=== PATIENT | female | born 1995 | race Caucasian/White ===

== ENCOUNTER 2017-07-18 03:55 | Emergency (ER) | payer SELFPAY ==
[~2017-07-18] VITALS: Ht 154.9 cm; Wt 54.4 kg
[2017-07-18 03:55] VITALS: BP 110/63
--- NOTE | 2017-07-18 03:55 | NUR ---
PT JANEY BOLDENS. TAKEN TO BED 4
[2017-07-18] MEDS ORDERED: NACL 0.9% 1,000 ML IV ONE (04:00)
--- NOTE | 2017-07-18 04:08 | NUR ---
PT 22F BIB AMBULANCE AFTER MOM CALLED 911 D/T PT BEING DRINKING ALCOHOL. ON ARRIVAL PT AMBULATED TO BATHROOM WITH 2 ASSISTS D/T UNSTEADY GATE. PT THEN REDIRECTED TO [facility] AND PLACED ON FULL MONITOR. NO SIG PMHX, SEEN HERE EARLIER THIS WEEK FOR SIMILAR COMPLAINT. PT DENIES N/V/D; SKIN IS INTACT, PINK/WARM/DRY; AAOX4 BUT SLURRING SPEECH, USING EXCESSIVE TALKING WITH ETOH SMELL ON BREATH, PERRL, LUNGS CLEAR BL, BREATHING UNLABORED; HR EVEN AND REGULAR, BL PERIPHERAL PULSES PRESENT; BS ACTIVE X4, NO TENDERNESS TO PALPATION, NO HEPATOSPLENOMEGALLY PALPATED, RESONANT TO PERCUSSION; PT DENIES ANY FEVER, CP, SOB, OR COUGH AT THIS TIME; PT STATES 0/10 PAIN AT THIS TIME; VSS; PATIENT POSITIONED FOR COMFORT; HOB ELEVATED; BEDRAILS UP X2; BED DOWN.
--- NOTE | 2017-07-18 04:08 | NUR ---
Note undone in EDM - 07/18/17 at 0500 by OLIVER PT 22F BIB AMBULANCE AFTER MOM CALLED 911 D/T PT BEING SEVERELY INTOXICATED WITH ALCOHOL. PT AMBULATED TO BATHROOM WITH 2 ASSISTS D/T UNSTEADY GATE. PT THEN REDIRECTED TO [facility] ON PLACED ON FULL MONITOR. NO SIG PMHX, SEEN HERE EARLIER THIS WEEK FOR SIMILAR COMPLAINT. PT DENIES N/V/D; SKIN IS INTACT, PINK/WARM/DRY; AAOX4 BUT HEAVILY INTOXICATED WITH ETOH SMELL ON BREATH, PERRL, LUNGS CLEAR BL, BREATHING UNLABORED; HR EVEN AND REGULAR, BL PERIPHERAL PULSES PRESENT; BS ACTIVE X4, NO TENDERNESS TO PALPATION, NO HEPATOSPLENOMEGALLY PALPATED, RESONANT TO PERCUSSION; PT DENIES ANY FEVER, CP, SOB, OR COUGH AT THIS TIME; PT STATES 0/10 PAIN AT THIS TIME; VSS; PATIENT POSITIONED FOR COMFORT; HOB ELEVATED; BEDRAILS UP X2; BED DOWN.
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
--- NOTE | 2017-07-18 04:15 | NUR ---
PT REPEATEDLY ATTEMPTING TO GET OUT OF STRETCHER X3, REDIRECTED TO LAY DOWN. EDMD MADE AWARE.
--- NOTE | 2017-07-18 04:24 | NUR ---
PT REPEATEDLY ATTEMPTING TO GET OUT OF STRETCHER, REDIRECTED TO LAY DOWN. EDMD MADE AWARE.
[2017-07-18] MEDS ORDERED: ONDANSETRON 4 MG/2 ML VIAL IVP ONE (04:25)
[2017-07-18] MEDS ORDERED: ONDANSETRON 4 MG/2 ML VIAL ONE (04:27)
--- NOTE | 2017-07-18 05:10 | NUR ---
PT ASLEEP ON GURNEY IN NO ACUTE DISTRESS, REASSURED, WARM BLANKET GIVEN.
[2017-07-18 05:51] VITALS: BP 109/60
--- NOTE | 2017-07-18 05:51 | NUR ---
Patient discharged with v/s stable. Written and verbal after care instructions given and explained. Patient verbalized understanding. Ambulatory with steady gait, ROAD TEST PERFORMED AND PASSED. All questions addressed prior to discharge. Advised to follow up with PMD.
== END 2017-07-18 05:51 | disposition home or self-care (01) ==
LOC: MED 03:55
DX: F10.129 Alcohol abuse with intoxication, unspecified (principal); F91.9 Conduct disorder, unspecified
CPT/HCPCS: 96361; 96374; 99284; J2405

== ENCOUNTER 2019-04-10 20:10 | Inpatient (IN) | payer OTHER ==
[~2019-04-10] VITALS: Ht 154.9 cm; Wt 54.4 kg
[2019-04-10 20:25] VITALS: BP 134/90
--- NOTE | 2019-04-10 20:28 | NUR ---
TO LOBBY A/W BED AMBULATORY
--- NOTE | 2019-04-10 22:34 | NUR ---
PATIENT AMB TO [facility].
[2019-04-10] MEDS ORDERED: NACL 0.9% 1,000 ML IV ONE (22:45)
[2019-04-10] MEDS ORDERED: KETOROLAC 30 MG/ML VIAL IVP ONE (22:45)
[2019-04-10] MEDS ORDERED: ONDANSETRON 4 MG/2 ML VIAL IVP ONE (22:45)
--- NOTE | 2019-04-10 22:45 | NUR ---
PATIENT AMB TO BED 2.
--- NOTE | 2019-04-10 22:55 | NUR ---
FIRST CONTACT WITH PT. LAYING IN POSITION IN BED WITH FACIAL GRIMACING. REPORTS 10/10 LOWER ABD PAIN WITH N/V. CLEAR YELLOW VOMIT NOTED TO EMESIS BAG. MOM IS SITTING NEARBY. PT PLACED IN GOWN AND PLACED ON MONITOR. WILL CONTINUE TO MONITOR.
--- NOTE | 2019-04-10 23:00 | NUR ---
LABS COLLECTED BY
--- NOTE | 2019-04-10 23:11 | NUR ---
MEDICATED WITH 4 MG IVP ZOFRAN FOR N/V AND 30 MG IVP TORADOL FOR 10/10 LOWER ABD PAIN. WILL REASSESS.
[2019-04-10 23:15] LABS: APPEARANCE,URINE SL CLOUDY (CLEAR); BILIRUBIN,URINE NEGATIVE (NEGATIVE); BLOOD, URINE NEGATIVE (NEGATIVE); COLOR,URINE YELLOW (YELLOW); LEUKOCYTE ESTERASE ,URINE NEGATIVE (NEGATIVE); NITRITE, URINE NEGATIVE (NEGATIVE); PH,URINE 5.5 (5.0-9.0); UGLUCOSE NEGATIVE (NEGATIVE)
[2019-04-10 23:17] LABS: BASOPHILS % (AUTO) 0.2 % (0.0-2.0); EOSINOPHILS % (AUTO) 0.1 % (0.0-4.0); HEMATOCRIT 39.6 % (36-48); HEMOGLOBIN 13.4 g/dL (12.0-16.0); LYMPHOCYTES # (AUTO) 0.7 K/uL (2.5-16.5); MEAN CORPUSCULAR HEMOGLOBIN 33 pg (27-31); MEAN CORPUSCULAR HGB CONC 34 g/dL (33-37); MEAN CORPUSCULAR VOLUME 97.7 fL (80-94); MONOCYTES # (AUTO) 0.5 K/uL (0.8-1.0); MONOCYTES % (AUTO) 3.3 % (1.7-9.3); NEUTROPHILS % (AUTO) 91.9 % (42.2-75.2); PLATELET COUNT (AUTO) 326 K/uL (140-450); RED BLOOD CELL COUNT(AUTO) 4.05 MIL/uL (4.20-5.40); RED CELL DISTRIBUTION WIDTH 12.6 % (11.6-13.7)
--- NOTE | 2019-04-10 23:17 | NUR ---
PT TAKEN TO CT VIA [facility].
--- NOTE | 2019-04-10 23:30 | NUR ---
PT REPORTS PAIN RELIEF; 3/10. PT STATES IS TOLERABLE AT THIS TIME.
[2019-04-10 23:38] LABS: LYMPHOCYTES % (AUTO) 4.5 % (20.5-51.1); WHITE BLOOD COUNT (AUTO) 15.2 K/uL (4.8-10.8)
[2019-04-10 23:40] LABS: ALBUMIN 4.2 g/dL (3.4-5.0); ANION GAP 15.7 (8-16); CARBON DIOXIDE 24.5 mmol/L (21-32); CREATININE 0.9 mg/dL (0.6-1.3); POTASSIUM 3.2 mmol/L (3.5-5.1); TOTAL BILIRUBIN 0.9 mg/dL (0.0-1.0)
[2019-04-11] MEDS ORDERED: ceFAZolin 1,000 MG VIAL ONE (00:16)
[2019-04-11] MEDS ORDERED: ONDANSETRON 4 MG/2 ML VIAL IM/IVP PRN (00:45)
[2019-04-11] MEDS ORDERED: NACL 0.9% 1,000 ML IV SCH (00:45)
[2019-04-11] MEDS ORDERED: DOCUSATE SODIUM 100 MG GELCAP PO PRN (00:45)
[2019-04-11] MEDS ORDERED: ACETAMINOPHEN 325 MG TAB PO PRN (00:45)
[2019-04-11] MEDS ORDERED: POTASSIUM CHLORIDE 40 MEQ, LIDOCAINE MPF 1% 25 MG in NACL 0.9% 250 ML IV ONE (01:15)
--- NOTE | 2019-04-11 01:30 | NUR ---
PT RESTING QUIETLY WITH EYES CLOSED. BREATHING EVEN, UNLABORED. AROUSABLE TO VERBAL STIMULI. VSS. NO COMPLAINTS AT THIS TIME.
[2019-04-11 02:00] VITALS: BP 133/84
--- NOTE | 2019-04-11 02:00 | NUR ---
RECEIVED PT FROM ER VIA [facility] PT FAROESE SPEAKER AAOX4 AMBULATORY IV ON LEFT AC PATENT, PT COMPLAINT OF ABD PAIN LT RT LOWER ABD PAIN MEDIC WILL BE GIVEN ORDER , MRSA SWAB NARES PROTOCOL TKREN AND SENT TO LAB .PT IS ORIENTED TO THE FLOOR CALL L [facility]YL[facility] WITHIN REACH
--- NOTE | 2019-04-11 02:10 | NUR ---
Patient will be admitted to care of Dr. Stringer. Admited to MS . Will go to room 120B. Belongings list completed. Report to DANIEL Porter.
[2019-04-11] MEDS ORDERED: [UNRECOGNIZED DRUG - CODE] PO (02:19)
[2019-04-11] MEDS: MORPHINE SULFATE 2 MG/ML SYR IVP PRN ×3 (02:26→17:13)
--- NOTE | 2019-04-11 04:00 | NUR ---
AFTER PAIN MEDIC GIVEN PT SLEEPING WELL NOT PAIN NOTED , KIV ON LEFT AC INFUSING WELL PT IS NPO .MOM AT BED SIDE
[2019-04-11 04:36] LABS: PROTHROMBIN TIME 9.5 secs (10.8-13.4)
[2019-04-11 06:26] LABS: BENZODIAZEPINE, URINE NEG. ng/mL (NEG <=200); CANNABINOID, URINE POS. ng/mL (NEG <=50); COCAINE, URINE POS. ng/mL (NEG <=300); OPIATE, URINE NEG. ng/mL (NEG <=2000); PHENCYCLIDINE SCREEN,URINE NEG. ng/mL (NEG <=25)
--- NOTE | 2019-04-11 06:30 | NUR ---
PT SLEEPING WELLN DENIES ANY PAIN IV ON LEFT AC INFUSING WELL
[2019-04-11 06:34] LABS: BARBITURATE, URINE NEG. ng/ml (NEG <=200)
[2019-04-11 06:34] LABS: BASOPHILS % (AUTO) 0.3 % (0.0-2.0); HEMATOCRIT 34.4 % (36-48); HEMOGLOBIN 11.7 g/dL (12.0-16.0); LYMPHOCYTES % (AUTO) 8.1 % (20.5-51.1); MEAN CORPUSCULAR HEMOGLOBIN 33 pg (27-31); MEAN CORPUSCULAR HGB CONC 34 g/dL (33-37); MEAN CORPUSCULAR VOLUME 98.5 fL (80-94); MONOCYTES # (AUTO) 0.6 K/uL (0.8-1.0); MONOCYTES % (AUTO) 5.1 % (1.7-9.3); NEUTROPHILS # (AUTO) 10.6 K/uL (1.8-7.7); NEUTROPHILS % (AUTO) 86.5 % (42.2-75.2); PLATELET COUNT (AUTO) 259 K/uL (140-450); RED BLOOD CELL COUNT(AUTO) 3.49 MIL/uL (4.20-5.40); RED CELL DISTRIBUTION WIDTH 12.6 % (11.6-13.7); WHITE BLOOD COUNT (AUTO) 12.2 K/uL (4.8-10.8)
[2019-04-11 06:35] LABS: FREE T4 (FREE THYROXINE) 1.26 ng/dL (0.76-1.46); MAGNESIUM 1.7 mg/dL (1.8-2.4); THYROID STIMULATING HORMONE 0.87 uIU/mL (0.34-3.74)
[2019-04-11] MEDS ORDERED: DEXT 5% /NACL 0.9% 1,000 ML IV SCH (06:35)
[2019-04-11] MEDS: PIPERACILLIN/TAZOBACTAM 3.375 GM in DEXTROSE 5% 50 ML IV SCH ×3 (07:00→18:12)
--- NOTE | 2019-04-11 07:00 | NUR ---
PT IS ENDORSED TO CHERIE RN FOR CONTINUE OF CARE
[2019-04-11 07:01] LABS: CHOL/HDL RATIO 1.5 (1-4.5)
--- NOTE | 2019-04-11 07:05 | NUR ---
RECEIVED BEDSIDE REPORT FROM NIGHTSHIFT NURSE. PT RESTING IN BED. ABLE TO MAKE NEEDS KNOWN. RESPIRATIONS EVEN AND UNLABORED WITH NO SOB OR RESPIRATORY DISTRESS. SKIN WARM AND DRY TO TOUCH. IV SITE IN LAC 22G IS CLEAN, DRY, AND INTACT. SAFETY MEASURES IN PLACE. WILL CONTINUE TO MONITOR.
[2019-04-11 07:09] LABS: ANION GAP 15.4 (8-16); CARBON DIOXIDE 22.2 mmol/L (21-32); CREATININE 0.7 mg/dL (0.6-1.3); POTASSIUM 3.6 mmol/L (3.5-5.1)
[2019-04-11] MEDS ORDERED: PIPERACILLIN/TAZOBACTAM 3.375 GM VIAL IV ONE (07:32)
[2019-04-11 08:00] VITALS: BP 128/87
--- NOTE | 2019-04-11 08:07 | NUR ---
PT CALLED AND COMPLAINED OF SEVERE PAIN. PRN PAIN MEDICATION ADMINISTERED PRESCRIBED PER MD ORDER. PT TOLERATED WELL. MEDICATION EDUCATION PERFORMED. PT VERBALIZED UNDERSTANDING. SAFETY MEASURES IN PLACE. WILL CONTINUE TO MONITOR.
[2019-04-11] MEDS ORDERED: NORGESTIMATE ETHINYL ESTRADIOL PO SCH (09:00)
--- NOTE | 2019-04-11 09:15 | NUR ---
ENDORSED TO OR NURSE. PATIENT WENT TO GET LAP APPY. SAFETY MEASURES IN PLACE. WILL CONTINUE TO MONITOR
[2019-04-11] MEDS ORDERED: fentaNYL 0.05 MG/ML VIAL ONE (09:20)
[2019-04-11] MEDS ORDERED: SEVOFLURANE 250 ML BTL INH ONE (09:20)
[2019-04-11] MEDS ORDERED: GLYCOPYRROLATE 0.2 MG/ML VIAL ONE (09:20)
[2019-04-11] MEDS ORDERED: ROCURONIUM 50 MG/5 ML VIAL IV ONE (09:20)
[2019-04-11] MEDS ORDERED: NEOSTIGMINE 1:1000 10 MG/10 ML VIAL ONE (09:20)
[2019-04-11] MEDS ORDERED: METOCLOPRAMIDE 10 MG/2 ML INJ VIAL ONE (09:20)
[2019-04-11] MEDS ORDERED: ONDANSETRON 4 MG/2 ML VIAL ONE (09:20)
[2019-04-11] MEDS ORDERED: SUCCINYLCHOLINE CHLORIDE 200 MG/10 ML VIAL IVP ONE (09:20)
[2019-04-11] MEDS ORDERED: PROPOFOL 200 MG/20 ML VIAL IV ONE (09:20)
[2019-04-11] MEDS ORDERED: MAG SULF 2000 MG/WATER PREMIX 50 ML IV SCH (09:30)
[2019-04-11] MEDS ORDERED: MORPHINE SULFATE 2 MG/ML SYR IVP SCH (09:30)
[2019-04-11] MEDS ORDERED: SODIUM PHOS / POTASSIUM PHOS 1 PKT PDR PO SCH (09:30)
[2019-04-11] MEDS: BUPIVACAINE-MPF 0.25% 30 ML VIAL INJ ONE ×2 (09:53→11:06)
[2019-04-11] MEDS ORDERED: DEXT 5% / NACL 0.45% 1,000 ML IV SCH (10:25)
[2019-04-11] MEDS ORDERED: HYDROcodone/APAP 5/325 MG 1 TAB TAB PO PRN (10:25)
[2019-04-11] MEDS ORDERED: HYDROmorphone PFS 2 MG/ML SYR ONE (10:29)
[2019-04-11] MEDS ORDERED: HYDROmorphone 1 MG/ML AMP IVP PRN (10:30)
[2019-04-11] MEDS ORDERED: LACTATED RINGERS 1,000 ML IV SCH (10:30)
[2019-04-11] MEDS ORDERED: ONDANSETRON 4 MG/2 ML VIAL IVP PRN (10:30)
--- NOTE | 2019-04-11 10:33 | NUR ---
ADMINISTERED SCHED MED PRESCRIBED PER MD ORDER. PT TOLERATED WELL. MEDICATION EDUCATION PERFORMED. PT VERBALIZED UNDERSTANDING. SAFETY MEASURES IN PLACE. WILL CONTINUE TO MONITOR.
--- NOTE | 2019-04-11 11:15 | NUR ---
PT RETURNED FROM SURGERY. RECEIVED REPORT FROM OR NURSE. SAFETY MEASURES IN PLACE. WILL CONTINUE TO MONITOR.
[2019-04-11] MEDS ORDERED: MAG SULF 2000 MG/WATER PREMIX 50 ML IV ONE (12:49)
--- NOTE | 2019-04-11 12:51 | NUR ---
ADMINISTERED SCHED MED PRESCRIBED PER MD ORDER. PT TOLERATED WELL. MEDICATION EDUCATION PERFORMED. PT VERBALIZED UNDERSTANDING. SAFETY MEASURES IN PLACE. WILL CONTINUE TO MONITOR.
[2019-04-11] MEDS: NACL 0.9% 1,000 ML IV SCH (13:13)
--- NOTE | 2019-04-11 13:13 | NUR ---
ADMINISTERED SCHED MED PRESCRIBED PER MD ORDER. PT TOLERATED WELL. MEDICATION EDUCATION PERFORMED. PT VERBALIZED UNDERSTANDING. SAFETY MEASURES IN PLACE. WILL CONTINUE TO MONITOR.
--- NOTE | 2019-04-11 15:27 | NUR ---
HOURLY ROUNDING. FAMILY AT BEDSIDE. PT RESTING IN BED. ABLE TO MAKE NEEDS KNOWN. RESPIRATIONS EVEN AND UNLABORED WITH NO SOB OR RESPIRATORY DISTRESS. SKIN WARM AND DRY TO TOUCH. SAFETY MEASURES IN PLACE. WILL CONTINUE TO MONITOR
[2019-04-11 16:00] VITALS: BP 131/65
--- NOTE | 2019-04-11 16:12 | NUR ---
PATIENT HAS BEEN SCREENED AND CATEGORIZED LOW NUTRITION RISK. PATIENT WILL BE SEEN WITHIN 7 DAYS OF ADMISSION. 04/17/[address]
--- NOTE | 2019-04-11 19:00 | NUR ---
RECEIVED BEDSIDE REPORT FROM DAY SHIFT NURSE. PATIENT IS AWAKE, ALERT, AND COOPERATIVE. RESPIRATION EVEN UNLABORED ON ROOM AIR. NO DISTRESS NOTED. SKIN IS WARM AND DRY. IV PATENT AND AND INTACT. FAMILY AT BEDSIDE. PLAN OF CARE WAS DISCUSSED. ALL SAFETY MEASURES IN PLACE. BED IS AT LOW POSITION. CALL LIGHT WITHIN REACH AND VERBALIZES ITS USE. WILL CONTINUE TO MONITOR.
--- NOTE | 2019-04-11 19:15 | NUR ---
ENDORSED AT BEDSIDE WITH NIGHTSHIFT NURSE. PT RESTING IN BED. ABLE TO MAKE NEEDS KNOWN. RESPIRATIONS EVEN AND UNLABORED WITH NO SOB OR RESPIRATORY DISTRESS. SKIN WARM AND DRY TO TOUCH. SAFETY MEASURES IN PLACE. PT IS STABLE
--- NOTE | 2019-04-11 20:07 | NUR ---
INITIAL ASSESSMENT DONE. VITALS WERE TAKEN. PATIENT IS S/P LAP APPY 3 INCISION NOTED WITH DERMA GLUE. NO DRAINAGE OR S/SX OF INFECTION. WILL CONTINUE TO MONITOR.
--- NOTE | 2019-04-11 21:33 | NUR ---
CHECKED PATIENT. PATIENT IS AWAKE WATCHING TV RESPIRATION EVEN UNLABORED ON ROOM AIR. NO DISTRESS NOTED. FAMILY AT BEDSIDE WILL CONTINUE TO MONITOR.
--- NOTE | 2019-04-11 21:46 | NUR ---
ENDORSED PATIENT TO [place] CHARGE NURSE. FOR CONTINUITY OF CARE. PATIENT IS IN STABLE CONDITION.
--- NOTE | 2019-04-11 21:47 | NUR ---
RECEIVED PT FROM MAHAD RN PT IS AAOX4 AMBULATORY S/P LAP APPENDECTOMY, ABD WITH 3 SMALL INCISION WITH GLUE ,IV ON LEFT AC INFUSING WELL , NOT DISTRESS NOTED , RELATIVE AR BED SIDE INITIAL ASSESSMENT DONE
[2019-04-12] VITALS: BP 128/68
[2019-04-12] MEDS: PIPERACILLIN/TAZOBACTAM 3.375 GM in DEXTROSE 5% 50 ML IV SCH ×2 (00:15→05:36)
--- NOTE | 2019-04-12 00:19 | NUR ---
PT REMAIN STABLE DENIES ANY PAIN AFTER PAIN MEDI GIVEN IV ON LEFT AC INFUSING WELL
--- NOTE | 2019-04-12 04:00 | NUR ---
PT HAS BEEN MONITORING CLOSE NOT DISTRESS NOTED IV ON LEFT AC INFUSIG WELL
[2019-04-12] MEDS: NACL 0.9% 1,000 ML IV SCH (04:50)
[2019-04-12 06:58] LABS: BASOPHILS % (AUTO) 0.1 % (0.0-2.0); EOSINOPHILS % (AUTO) 0.7 % (0.0-4.0); HEMATOCRIT 32.2 % (36-48); HEMOGLOBIN 10.9 g/dL (12.0-16.0); LYMPHOCYTES # (AUTO) 1.8 K/uL (2.5-16.5); LYMPHOCYTES % (AUTO) 27.2 % (20.5-51.1); MEAN CORPUSCULAR HEMOGLOBIN 34 pg (27-31); MEAN CORPUSCULAR HGB CONC 34 g/dL (33-37); MEAN CORPUSCULAR VOLUME 99.2 fL (80-94); MONOCYTES # (AUTO) 0.4 K/uL (0.8-1.0); MONOCYTES % (AUTO) 6.8 % (1.7-9.3); NEUTROPHILS # (AUTO) 4.3 K/uL (1.8-7.7); NEUTROPHILS % (AUTO) 65.2 % (42.2-75.2); PLATELET COUNT (AUTO) 239 K/uL (140-450); RED BLOOD CELL COUNT(AUTO) 3.24 MIL/uL (4.20-5.40); RED CELL DISTRIBUTION WIDTH 12.7 % (11.6-13.7); WHITE BLOOD COUNT (AUTO) 6.6 K/uL (4.8-10.8)
--- NOTE | 2019-04-12 07:00 | NUR ---
PT WILL BE ENDORSED TO DAY SHIFT NURSE FOR CONTINUE OF CARE
--- NOTE | 2019-04-12 07:10 | NUR ---
RECEIVED BEDSIDE REPORT FROM NIGHTSHIFT NURSE. PT RESTING IN BED. ABLE TO MAKE NEEDS KNOWN. IV SITE IN LEFT AC 22G IS CLEAN, DRY, AND INTACT. RESPIRATIONS EVEN AND UNLABORED WITH NO SOB OR RESPIRATORY DISTRESS. SKIN WARM AND DRY TO TOUCH. SAFETY MEASURES IN PLACE. WILL CONTINUE TO MONITOR
[2019-04-12 07:12] LABS: ANION GAP 12.1 (8-16); CARBON DIOXIDE 27.1 mmol/L (21-32); CREATININE 0.8 mg/dL (0.6-1.3); POTASSIUM 3.2 mmol/L (3.5-5.1)
[2019-04-12 07:17] LABS: PHOSPHORUS 3.2 mg/dL (2.5-4.9)
[2019-04-12 08:00] VITALS: BP 107/57
[2019-04-12] MEDS ORDERED: FERROUS SULFATE 325 MG TABEC PO SCH (08:00)
[2019-04-12] MEDS ORDERED: POTASSIUM CHLORIDE 10 MEQ TABER PO SCH (08:30)
--- NOTE | 2019-04-12 08:32 | NUR ---
ADMINISTERED SCHED MED PRESCRIBED PER MD ORDER. PT TOLERATED WELL. MEDICATION EDUCATION PERFORMED. PT VERBALIZED UNDERSTANDING. SAFETY MEASURES IN PLACE. WILL CONTINUE TO MONITOR
[2019-04-12] MEDS ORDERED: ASCORBIC ACID 500 MG TAB PO SCH (09:00)
[2019-04-12] MEDS: MORPHINE SULFATE 2 MG/ML SYR IVP PRN (09:22)
--- NOTE | 2019-04-12 09:22 | NUR ---
PT CALLED AND COMPLAINED OF SEVERE PAIN. PRN PAIN MEDICATION ADMINISTERED PRESCRIBED PER MD ORDER. PT TOLERATED WELL. MEDICATION EDUCATION PERFORMED. PT VERBALIZED UNDERSTANDING
--- NOTE | 2019-04-12 11:15 | NUR ---
FAMILY AT BEDSIDE. PT RESTING IN BED. ABLE TO MAKE NEEDS KNOWN. RESPIRATIONS EVEN AND UNLABORED WITH NO SOB OR RESPIRATORY DISTRESS. SKIN WARM AND DRY TO TOUCH. SAFETY MEASURES IN PLACE. WILL CONTINUE TO MONITOR.
[2019-04-12 12:28] LABS: ANION GAP 11.8 (8-16); CARBON DIOXIDE 27.2 mmol/L (21-32); CREATININE 0.8 mg/dL (0.6-1.3)
--- NOTE | 2019-04-12 13:15 | NUR ---
PT IS AWARE OF DISCHARGE AND WOULD LIKE TO LEAVE BEFORE 3:30PM. SAFETY MEASURES IN PLACE. WILL CONTINUE TO MONITOR
[2019-04-12] MEDS ORDERED: IBUP-2218 PO (13:25)
[2019-04-12 13:29] VITALS: BP 107/56
--- NOTE | 2019-04-12 14:27 | NUR ---
WENT OVER DISCHARGE INSTRUCTIONS WITH PATIENT. PT SIGNED APPROPRIATE DOCUMENTS. INSTRUCTED PT TO VISIT ED FOR ANY SIGNS AND SYMPTOMS OF DISTRESS. PT VERBALIZED UNDERSTANDING. PT DOES NOT WANT FLU VACCINE. ID BAND AND INTACT IV CANNULA REMOVED. PT CHANGED INTO HER OWN CLOTHES AND GATHERED HER BELONGINGS. ESCORTED PT OUT. PT IS STABLE.
[2019-04-14 08:19] LABS: FOLIC ACID 15.3 ng/mL (>3.0)
== END 2019-04-12 14:30 | disposition home or self-care (01) | DRG 343 ==
LOC: MED 20:10 → MTU 04-11 00:45
PROVIDERS: ADMIT General Practice; ATTEND General Practice
PROC: 0DTJ4ZZ Resection of Appendix, Percutaneous Endoscopic Approach (ICD-10-PCS; principal; 2019-04-11 09:00)
DX: K35.80 Unspecified acute appendicitis (principal); F14.10 Cocaine abuse, uncomplicated; F12.10 Cannabis abuse, uncomplicated; D64.9 Anemia, unspecified; E83.42 Hypomagnesemia; E83.39 Other disorders of phosphorus metabolism; E87.6 Hypokalemia; Z71.51 Drug abuse counseling and surveillance of drug abuser
CPT/HCPCS: 36415; 80048; 80053; 80305; 81003; 82150; 82374; 82607; 82728; 82746; 83036; 83540; 83690; 83735; 83880; 84100; 84134; 84439; 84443; 84484; 85025; 85045; 85610; 85730; 86886; 86900; 86901; 87040; 87081; 96365; 96375; 99285; J0330; J0690; J1170; J1885; J2001; J2270; J2405; J2543; J2704; J2710; J2765; J3010; J3475; J3480; J3490; J7030; J7042; J7060

== ENCOUNTER 2022-12-21 13:32 | Emergency (ER) | payer MEDICAID, OTHER ==
[~2022-12-21] VITALS: Ht 154.9 cm; Wt 56.7 kg
[~2022-12-21 13:32] MED LIST: IBUP-2218 PO; [UNRECOGNIZED DRUG - CODE] PO
[2022-12-21 13:57] VITALS: BP 161/73; PULSE 71; RESP 18; TEMP 97.8; O2SAT 99
[2022-12-21] MEDS ORDERED: BENZ-300 PO (15:16)
[2022-12-21 15:30] VITALS: BP 128/78; PULSE 71; RESP 18; TEMP 97.8; O2SAT 99
[2022-12-21 16:30] LABS: FLU A ANTIGEN negative (NEGATIVE); FLU B ANTIGEN NEGATIVE (NEGATIVE)
== END 2022-12-21 15:30 | disposition home or self-care (01) ==
LOC: MED 13:32
DX: J02.9 Acute pharyngitis, unspecified (principal); R03.0 Elevated blood-pressure reading, without diagnosis of hypertension; Z20.822 Contact with and (suspected) exposure to COVID-19; Z79.899 Other long term (current) drug therapy; Z79.1 Long term (current) use of non-steroidal anti-inflammatories (NSAID)
CPT/HCPCS: 87081; 99283